=== PATIENT | female | born 1965 | race Hispanic/Latino ===

== ENCOUNTER → 2017-09-26 | Outpatient (CLI) | payer OTHER ==
--- NOTE | 2017-09-26 16:16 | Diagnostic Imaging Report ---
EXAM: Complete Abdominal Ultrasound INDICATION: ABDOMINAL PAIN COMPARISON: None. TECHNIQUE: Transverse and longitudinal images of the upper abdomen were obtained. FINDINGS: Liver: Size: 16.2 cm in the right midclavicular line, mildly enlarged Appearance: Increased echogenicity, smooth contour Mass: No focal masses Spleen: Size: 8.3 cm in length, normal Echogenicity: Normal Mass: No focal masses Gallbladder: Stones/Sludge: None. No shadowing echogenic focus along the gallbladder wall measuring 0.4 x 0.5 x 0.4 cm demonstrate minimal flow suggesting a polyp. Wall: 0.2 cm Appearance: No wall thickening, pericholecystic fluid or hydrops. Sonographic James's Sign: Negative Bile Ducts: Intrahepatic Ducts: No dilatation Extrahepatic Ducts: Common bile duct measures 0.3 cm, no dilatation Pancreas: Visualized portions of the pancreatic head, neck and proximal body are normal. Kidneys: Length: Right 10.3 cm Left 11.4 cm Echogenicity: Normal Collecting System: No hydronephrosis Stone: None Cyst/Mass: None Vessels: Aorta: Visualized portions are normal Inferior Vena Cava: Visualized portions are normal Main Portal Vein: 0.7cm, normal size with hepatopetal flow. Free Fluid: No ascites or pleural effusion IMPRESSION: 1. Hepatomegaly and hepatic steatosis. 2. 0.5 cm gallbladder polyp. Signed by: Dr. Charley Schmitz M.D. on 09/26/2017 4:12 PM
--- NOTE | 2017-09-26 17:12 | Diagnostic Imaging Report ---
EXAM: Transabdominal and Transvaginal Pelvic Ultrasound INDICATION: Right lower quadrant and pelvic pain. COMPARISON: None TECHNIQUE: Grayscale transverse and sagittal transabdominal and transvaginal images were obtained of the pelvis. Transvaginal imaging was medically necessary to better evaluate the endometrium and the adnexa. CLINICAL HISTORY: 51 year old A0; last menstrual period: 07/10/2017.. FINDINGS: Uterus Orientation: Normal Size: 13.2 x 5.4 x 10.2 cm, enlarged Mass: Large heterogeneous mass abutting the right aspect of the uterine fundus measuring 8.2 x 6.5 x 8.5 cm. Isoechoic mass in the left aspect of the uterine body measures 2.0 x 1.7 x 2.1 cm. Cervix: Normal Endometrium: Thickness: 1.1 cm, Normal. Appearance: Homogeneous echotexture without focal thickening. Right ovary: Not visualized. Left ovary: Not visualized. Adnexa: No gross abnormality. Cul-de-sac: No free fluid Cursory evaluation of the right lower quadrant limited due to bowel gas. The appendix is not identified, however, no dilated tubular structure. IMPRESSION: 1. 8.5 cm heterogeneous mass which appears to arise from the right aspect of the uterine fundus suggestive of a degenerated leiomyoma. 2. Ovaries not visualized, however, no definite adnexal mass. 3. Cursory evaluation of the right lower quadrant not conclusive for appendicitis. If there is particular concern for acute appendicitis, consider further evaluation with CT abdomen and pelvis with contrast. Contacted Dr. Cano office at 4:55 pm on 09/26/2017, however, office was closed. Signed by: Dr. Charley Schmitz M.D. on 09/26/2017 5:08 PM
== END | disposition home or self-care (01) ==
LOC: US 13:51
PROVIDERS: ATTEND Family Medicine
DX: R10.84 Generalized abdominal pain (principal); R10.2 Pelvic and perineal pain; R16.0 Hepatomegaly, not elsewhere classified; K76.0 Fatty (change of) liver, not elsewhere classified; K82.4 Cholesterolosis of gallbladder; N85.9 Noninflammatory disorder of uterus, unspecified
CPT/HCPCS: 76700; 76856